=== PATIENT | male | born 1995 | race Two or more races ===

== ENCOUNTER 2020-01-19 15:13 | Emergency (ER) | payer MEDICAID ==
[~2020-01-19] VITALS: Ht 165.1 cm; Wt 70.0 kg
[2020-01-19] MEDS ORDERED: CEPHALEXIN 250MG CAPSULE PO ONE (15:45)
[2020-01-19] MEDS ORDERED: SULFAMETHOXAZOLE/TRIMETHOPRIM 800/160MG TABLET PO ONE (15:45)
[2020-01-19 17:00] VITALS: BP 114/73
== END 2020-01-19 17:25 | disposition home or self-care (01) ==
LOC: ER 15:13
DX: D49.89 Neoplasm of unspecified behavior of other specified sites (principal); Z48.02 Encounter for removal of sutures
CPT/HCPCS: 71045; 99283

== ENCOUNTER 2020-07-07 15:32 | Inpatient (IN) | payer MEDICAID ==
[~2020-07-07] VITALS: Ht 167.6 cm; Wt 64.0 kg
[2020-07-07] MEDS ORDERED: SODIUM CHLORIDE 0.9% 1000ML BAG (SEPSIS BOLUS) IV ONE (16:00)
[2020-07-07 16:43] LABS: CHLORIDE 93 mEq/L (98-107); HEMATOCRIT. 33.3 % (42.0-52.0); HEMOGLOBIN. 11.6 g/dL (14.0-18.0); MEAN CORPUSCULAR HEMOGLOBIN 31.2 pg (28.0-32.0); MEAN CORPUSCULAR VOLUME 89.7 fL (80.0-94.0); MEAN PLATELET VOLUME 7.3 fl (7.4-10.4); PLATELET 54 x1000/uL (130-400); RED BLOOD CELL COUNT 3.71 mill/uL (4.7-6.1); RED CELL DISTRIBUTION WIDTH 13.6 % (11.6-14.6)
[2020-07-07 16:45] LABS: INR 1.3; PROTHROMBIN TIME 13.8 sec (9.6-11.0)
[2020-07-07] MEDS ORDERED: POTASSIUM CHLORIDE 20MEQ TABLET SR PO NR (17:36)
[2020-07-07] MEDS ORDERED: CEFEPIME 2,000 MG in DEXT 5% WATER 100 ML IV SCH (18:00)
[2020-07-07] MEDS ORDERED: POTASSIUM CHLORIDE INJ 40 MEQ in DEXT 5% WATER 250 ML IV ONE (18:00)
[2020-07-07 18:45] LABS: CLARITY URINE CLEAR (CLEAR); COLOR URINE YELLOW (YELLOW); KETONES URINE NEGATIVE (NEGATIVE); LEUKOCYTE ESTERASE URINE NEGATIVE (NEGATIVE); NITRITE URINE NEGATIVE (NEGATIVE); OCCULT BLOOD URINE 2+ (NEGATIVE); PH URINE 5.5 (4.5-8.0); PROTEIN URINE 2+ (NEGATIVE); SPECIFIC GRAVITY URINE 1.013 (1.005-1.030); UROBILINOGEN URINE 0.2 E.U./dL (0.2-1.0)
[2020-07-07] MEDS ORDERED: VANCOMYCIN 1 G PREMIX 200 ML IV SCH (19:45)
[2020-07-07 20:44] LABS: PLATELET ESTIMATE MARKEDLY DECREASED
[2020-07-08] VITALS (7 sets, daily range): BP systolic 94–123; BP diastolic 32–64
[2020-07-08] MEDS: SODIUM CHLORIDE 0.9% 1,000 ML IV SCH ×2 (09:45→17:01)
[2020-07-08] MEDS: ACETAMINOPHEN 325MG TABLET PO PRN ×2 (11:30→20:39)
[2020-07-08] MEDS: CEFEPIME 2,000 MG in DEXT 5% WATER 100 ML IV SCH (14:16)
[2020-07-08] MEDS: VANCOMYCIN 1 G PREMIX 200 ML IV SCH ×2 (15:44→22:32)
[2020-07-08] MEDS: FILGRASTIM-TBO 480 MCG/0.8 ML SYRINGE SQ SCH (17:01)
[2020-07-08 17:26] LABS: CHLORIDE 101 mEq/L (98-107)
[2020-07-08] MEDS ORDERED: POTASSIUM CHLORIDE INJ 40 MEQ in DEXT 5% WATER 250 ML IV NR (20:00)
[2020-07-09] VITALS (10 sets, daily range): BP systolic 83–109; BP diastolic 47–66
[2020-07-09] MEDS: SODIUM CHLORIDE 0.9% 1,000 ML IV SCH ×4 (00:04→22:56)
[2020-07-09] MEDS: CEFEPIME 2,000 MG in DEXT 5% WATER 100 ML IV SCH ×4 (00:14→22:56)
[2020-07-09] MEDS: ACETAMINOPHEN 325MG TABLET PO PRN ×4 (02:18→22:56)
[2020-07-09] MEDS: VANCOMYCIN 1 G PREMIX 200 ML IV SCH (05:53)
[2020-07-09 06:47] LABS: CHLORIDE 99 mEq/L (98-107)
[2020-07-09 07:02] LABS: HEMATOCRIT. 27.8 % (42.0-52.0); HEMOGLOBIN. 9.7 g/dL (14.0-18.0); MEAN CORPUSCULAR HEMOGLOBIN 31.4 pg (28.0-32.0); MEAN CORPUSCULAR VOLUME 89.9 fL (80.0-94.0); MEAN PLATELET VOLUME 7.8 fl (7.4-10.4); RED BLOOD CELL COUNT 3.09 mill/uL (4.7-6.1); RED CELL DISTRIBUTION WIDTH 13.7 % (11.6-14.6)
[2020-07-09] MEDS ORDERED: POTASSIUM CHLORIDE INJ 40 MEQ in DEXT 5% WATER 250 ML IV NR (11:00)
[2020-07-09 12:15] LABS: PLATELET 15 x1000/uL (130-400); PLATELET ESTIMATE MARKEDLY DECREASED
[2020-07-09] MEDS: MIDODRINE HCL 2.5MG TABLET PO SCH ×2 (13:41→18:07)
[2020-07-09] MEDS: VANCOMYCIN 1250MG in DEXTROSE 5% WATER 250ML IV SCH ×2 (14:05→22:56)
[2020-07-09] MEDS ORDERED: LIDOCAINE HCL 4% (40MG/ML) SOLN 50ML TOP SCH (17:30)
[2020-07-09] MEDS: VISCOUS LIDOCAINE 2% 15 ML UDC MM SCH (18:07)
[2020-07-09] MEDS: FILGRASTIM-TBO 480 MCG/0.8 ML SYRINGE SQ SCH (22:56)
[2020-07-10] VITALS: BP 90/45
[2020-07-10] MEDS: SODIUM CHLORIDE 0.9% 1,000 ML IV SCH ×3 (03:04→17:11)
[2020-07-10 04:00] VITALS: BP 99/59
[2020-07-10] MEDS: CEFEPIME 2,000 MG in DEXT 5% WATER 100 ML IV SCH ×3 (06:11→22:34)
[2020-07-10] MEDS: VANCOMYCIN 1250MG in DEXTROSE 5% WATER 250ML IV SCH (06:11)
[2020-07-10 08:00] VITALS: BP 104/63
[2020-07-10] MEDS: MIDODRINE HCL 2.5MG TABLET PO SCH ×3 (09:04→17:10)
[2020-07-10] MEDS: VISCOUS LIDOCAINE 2% 15 ML UDC MM SCH ×3 (09:12→17:10)
[2020-07-10] MEDS: ACETAMINOPHEN 325MG TABLET PO PRN (11:31)
[2020-07-10 12:00] VITALS: BP 108/60
[2020-07-10 12:07] LABS: HEMATOCRIT. 26.6 % (42.0-52.0); HEMOGLOBIN. 9.3 g/dL (14.0-18.0); MEAN CORPUSCULAR HEMOGLOBIN 31.3 pg (28.0-32.0); MEAN CORPUSCULAR VOLUME 89.5 fL (80.0-94.0); MEAN PLATELET VOLUME 7.9 fl (7.4-10.4); RED BLOOD CELL COUNT 2.97 mill/uL (4.7-6.1); RED CELL DISTRIBUTION WIDTH 13.5 % (11.6-14.6)
[2020-07-10 12:22] LABS: PLATELET 22 x1000/uL (130-400)
[2020-07-10 12:24] LABS: CHLORIDE 100 mEq/L (98-107)
[2020-07-10] MEDS ORDERED: HYDROCODONE/ACETAMINOPHEN 5/325MG TABLET PO PRN (13:15)
[2020-07-10] MEDS ORDERED: POTASSIUM CHLORIDE 20MEQ TABLET SR PO NR (13:30)
[2020-07-10] MEDS ORDERED: POTASSIUM CHLORIDE INJ 40 MEQ in DEXT 5% WATER 250 ML IV NR (14:30)
[2020-07-10 16:00] VITALS: BP 105/63
[2020-07-10 20:00] VITALS: BP 104/48
[2020-07-10] MEDS: GUAIFENESIN/CODEINE 200-20MG/10ML UDC PO PRN (21:33)
[2020-07-10] MEDS: FILGRASTIM-TBO 480 MCG/0.8 ML SYRINGE SQ SCH (21:33)
[2020-07-10 22:23] LABS: PLATELET ESTIMATE MARKEDLY DECREASED
[2020-07-11] VITALS: BP 100/55
[2020-07-11] MEDS: SODIUM CHLORIDE 0.9% 1,000 ML IV SCH ×3 (01:58→21:02)
[2020-07-11 04:00] VITALS: BP 103/53
[2020-07-11] MEDS: GUAIFENESIN/CODEINE 200-20MG/10ML UDC PO PRN (05:16)
[2020-07-11] MEDS: CEFEPIME 2,000 MG in DEXT 5% WATER 100 ML IV SCH ×3 (06:02→21:45)
[2020-07-11 06:37] LABS: CHLORIDE 103 mEq/L (98-107)
[2020-07-11] MEDS: VISCOUS LIDOCAINE 2% 15 ML UDC MM SCH ×3 (07:35→17:40)
[2020-07-11 08:00] VITALS: BP 88/55
[2020-07-11] MEDS: MIDODRINE HCL 2.5MG TABLET PO SCH ×3 (10:16→17:40)
[2020-07-11 12:00] VITALS: BP 98/55
[2020-07-11] MEDS: THROAT LOZENGES-BENZOCAINE/MENTH/CETYLPYRD CL LOZENGES MM PRN ×2 (12:50→21:58)
[2020-07-11 16:00] VITALS: BP 88/39
[2020-07-11 20:00] VITALS: BP 100/54
[2020-07-11] MEDS: POTASSIUM CHLORIDE INJ 60 MEQ in DEXT 5% WATER 250 ML IV NR ×2 (20:00→21:45)
[2020-07-11] MEDS: FILGRASTIM-TBO 480 MCG/0.8 ML SYRINGE SQ SCH (21:06)
[2020-07-12] VITALS: BP 108/67
[2020-07-12 04:00] VITALS: BP 99/56
[2020-07-12] MEDS: CEFEPIME 2,000 MG in DEXT 5% WATER 100 ML IV SCH ×3 (06:38→20:55)
[2020-07-12] MEDS: ACETAMINOPHEN 325MG TABLET PO PRN (06:43)
[2020-07-12] MEDS: VISCOUS LIDOCAINE 2% 15 ML UDC MM SCH ×3 (07:05→17:04)
[2020-07-12] MEDS: SODIUM CHLORIDE 0.9% 1,000 ML IV SCH ×2 (07:05→20:55)
[2020-07-12 07:37] LABS: CHLORIDE 103 mEq/L (98-107)
[2020-07-12 07:43] LABS: HEMATOCRIT. 25.1 % (42.0-52.0); HEMOGLOBIN. 8.6 g/dL (14.0-18.0); MEAN CORPUSCULAR HEMOGLOBIN 31.5 pg (28.0-32.0); MEAN CORPUSCULAR VOLUME 92.2 fL (80.0-94.0); MEAN PLATELET VOLUME 9.2 fl (7.4-10.4); RED BLOOD CELL COUNT 2.72 mill/uL (4.7-6.1); RED CELL DISTRIBUTION WIDTH 13.3 % (11.6-14.6)
[2020-07-12 08:00] VITALS: BP 91/54
[2020-07-12] MEDS: MIDODRINE HCL 2.5MG TABLET PO SCH ×3 (08:38→16:51)
[2020-07-12] MEDS: POTASSIUM CHLORIDE 20MEQ TABLET SR PO SCH (08:44)
[2020-07-12 08:56] LABS: PLATELET 24 x1000/uL (130-400)
[2020-07-12] MEDS ORDERED: POTASSIUM CHLORIDE INJ 40 MEQ in DEXT 5% WATER 250 ML IV NR (09:30)
[2020-07-12 12:00] VITALS: BP 94/57
[2020-07-12 14:03] LABS: PLATELET ESTIMATE MARKEDLY DECREASED
[2020-07-12 16:00] VITALS: BP 90/50
[2020-07-12 20:00] VITALS: BP 87/57
[2020-07-13] VITALS: BP 88/43
[2020-07-13 04:00] VITALS: BP 91/58
[2020-07-13] MEDS: THROAT LOZENGES-BENZOCAINE/MENTH/CETYLPYRD CL LOZENGES MM PRN (04:42)
[2020-07-13] MEDS: CEFEPIME 2,000 MG in DEXT 5% WATER 100 ML IV SCH (06:00)
[2020-07-13] MEDS: VISCOUS LIDOCAINE 2% 15 ML UDC MM SCH ×3 (06:54→17:20)
[2020-07-13 06:56] LABS: HEMATOCRIT. 27.3 % (42.0-52.0); HEMOGLOBIN. 9.2 g/dL (14.0-18.0); MEAN CORPUSCULAR VOLUME 92.3 fL (80.0-94.0); MEAN PLATELET VOLUME 8.7 fl (7.4-10.4); RED BLOOD CELL COUNT 2.96 mill/uL (4.7-6.1); RED CELL DISTRIBUTION WIDTH 13.3 % (11.6-14.6)
[2020-07-13 07:10] LABS: CHLORIDE 106 mEq/L (98-107)
[2020-07-13 08:00] VITALS: BP 98/50
[2020-07-13] MEDS: SODIUM CHLORIDE 0.9% 1,000 ML IV SCH (09:23)
[2020-07-13] MEDS: MIDODRINE HCL 2.5MG TABLET PO SCH ×3 (10:04→17:00)
[2020-07-13] MEDS: POTASSIUM CHLORIDE 20MEQ TABLET SR PO SCH (10:04)
[2020-07-13 13:00] VITALS: BP 104/56
[2020-07-13 15:27] VITALS: BP 104/56
[2020-07-13 16:00] VITALS: BP 105/55
[2020-07-13 22:26] LABS: PLATELET 23 x1000/uL (130-400); PLATELET ESTIMATE MARKEDLY DECREASED
== END 2020-07-13 18:36 | disposition home or self-care (01) | DRG 720 ==
LOC: ER 15:32 → MICUSO 23:31 → 3WST 07-08 02:55 → 7EST 07-08 15:18 → 6WST 07-10 03:00
PROVIDERS: ADMIT Internal Medicine; ATTEND Internal Medicine
PROC: 30233R1 Transfusion of Nonautologous Platelets into Peripheral Vein, Percutaneous Approach (ICD-10-PCS; principal; 2020-07-09)
DX: A41.9 Sepsis, unspecified organism (principal); D61.818 Other pancytopenia; Z20.828 Contact with and (suspected) exposure to other viral communicable diseases; E86.0 Dehydration; E86.1 Hypovolemia; E87.1 Hypo-osmolality and hyponatremia; E87.6 Hypokalemia; J03.90 Acute tonsillitis, unspecified; D69.59 Other secondary thrombocytopenia; T45.1X5A Adverse effect of antineoplastic and immunosuppressive drugs, initial encounter; C34.90 Malignant neoplasm of unspecified part of unspecified bronchus or lung; R74.01 Elevation of levels of liver transaminase levels; C79.82 Secondary malignant neoplasm of genital organs; Z88.8 Allergy status to other drugs, medicaments and biological substances; Y92.89 Other specified places as the place of occurrence of the external cause; Z92.21 Personal history of antineoplastic chemotherapy; J18.9 Pneumonia, unspecified organism; E43 Unspecified severe protein-calorie malnutrition; Z68.22 Body mass index [BMI] 22.0-22.9, adult; D70.9 Neutropenia, unspecified; I95.9 Hypotension, unspecified; C80.1 Malignant (primary) neoplasm, unspecified
CPT/HCPCS: 36415; 70490; 71045; 80048; 80053; 80202; 81003; 83605; 83735; 84145; 85025; 85049; 85379; 86850; 86900; 87070; 87430; 87493; 87635; 93005; 96365; 97162; 99291; C1893; J0692; J1442; J3370; J3480; J7030; J7040; J7060; P9034